=== PATIENT | female | born 1970 | race Caucasian/White ===

== ENCOUNTER 2018-04-04 05:35 | Day surgery (SDC) | payer OTHER ==
[~2018-04-04] VITALS: Ht 154.9 cm; Wt 67.6 kg
[2018-04-04] MEDS ORDERED: fentaNYL CITRATE/PF 100 MCG/2 ML AMP IVP PRN ×2 (07:30)
[2018-04-04] MEDS ORDERED: ONDANSETRON HCL 4 MG/2 ML VIAL IVP PRN ×2 (07:30→11:00)
[2018-04-04] MEDS ORDERED: KETOROLAC TROMETHAMINE 30 MG VIAL IVP PRN ×2 (07:30→11:00)
[2018-04-04] MEDS ORDERED: PROMETHAZINE HCL 25 MG/ML AMP IM PRN (11:00)
[2018-04-04] MEDS ORDERED: OXYCODONE/ACETAMINOPHEN 5-325 TABLET PO PRN (11:00)
[2018-04-04] MEDS ORDERED: PROPOFOL 200MG/ 20ML VIAL (DIPRIVAN) IV ONE (11:15)
[2018-04-04] MEDS ORDERED: LR 1,000 ML IV.SOLN IV ONE (11:15)
[2018-04-04] MEDS ORDERED: fentaNYL CITRATE/PF 100 MCG/2 ML AMP IVP ONE (11:15)
[2018-04-04] MEDS ORDERED: CEFAZOLIN 2 GM IVPB PREMIX 50 ML IV ONE (11:15)
[2018-04-04] MEDS ORDERED: ROCURONIUM BROMIDE 10 MG/ML (ZEMURON) IV ONE (11:15)
[2018-04-04] MEDS ORDERED: NS 1000 ML IV.SOLN IV ONE (11:15)
[2018-04-04] MEDS ORDERED: BUPIVACAINE /PF 0.25% 30 ML VIAL INJ ONE (11:15)
[2018-04-04] MEDS ORDERED: ONDANSETRON HCL 4 MG/2 ML VIAL IVP ONE (11:15)
[2018-04-04] MEDS ORDERED: ROPIVACAINE 0.2% (NAROPIN) PF SOLUTION 100 ML BOTTLE EP ONE (11:15)
[2018-04-04] MEDS ORDERED: LABETALOL 100 MG/ 20ML VIAL IVP ONE (11:15)
[2018-04-04] MEDS ORDERED: GLYCOPYRROLATE 0.2 MG/ML VIAL IJ ONE (11:15)
[2018-04-04] MEDS ORDERED: KETOROLAC TROMETHAMINE 30 MG VIAL IVP ONE (11:15)
[2018-04-04] MEDS ORDERED: SEVOFLURANE 15 MIN GAS INH ONE (11:15)
[2018-04-04] MEDS ORDERED: MIDAZOLAM HCL 5 MG/5 ML VIAL IVP ONE (11:15)
[2018-04-04] MEDS ORDERED: hydrALAZINE HCL 20 MG/ML VIAL IVP STA (12:20)
[2018-04-04] MEDS ORDERED: hydrALAZINE HCL 20 MG/ML VIAL ONE (12:30)
[2018-04-04] MEDS ORDERED: OXYCODONE/ACETAMINOPHEN 5-325 TABLET ONE (13:11)
[2018-04-04 13:42] VITALS: BP_SYST 122
== END 2018-04-04 15:30 | disposition home or self-care (01) ==
LOC: SMU 05:35 → SDS 05:35
PROVIDERS: ATTEND Obstetrics & Gynecology
DX: D25.1 Intramural leiomyoma of uterus (principal); D25.2 Subserosal leiomyoma of uterus; E78.5 Hyperlipidemia, unspecified; Z90.49 Acquired absence of other specified parts of digestive tract; Z98.51 Tubal ligation status; Z80.0 Family history of malignant neoplasm of digestive organs; N84.0 Polyp of corpus uteri
CPT/HCPCS: 36415 ×2; 58571; 86886 ×2; 86900 ×2; 86901 ×2; 88307; C1727; J0360; J0690; J1885; J2250; J2405; J2704; J2795; J3010; J3490 ×3; J7030; J7120; E0190